=== PATIENT | female | born 1985 | race Caucasian/White ===

== ENCOUNTER 2018-12-17 19:39 | Emergency (ER) | payer OTHER, SELFPAY ==
[2018-12-17 19:39] VITALS: BP 125/78; PULSE 100; RESP 16; TEMP 37.2; O2SAT 100; BMI 29.2
--- NOTE | 2018-12-17 19:43 | RAD_ITS ---
STUDY: X-RAY - UNILATERAL RIBS ( RIGHT ) REASON FOR EXAM: Female, 33 years old. Fall TECHNIQUE: 4 view(s) of the ribs. COMPARISON: None. FINDINGS: Normal visualized ribs without a demonstrated fracture. The visualized lung is clear and expanded. RAD/Ribs Unil 2V No CXR IMPRESSION: Normal x-ray examination of the ribs. Electronically Signed: Blaine Booker DO at 22:09 EDT Tel [phone], Service support ,
--- NOTE | 2018-12-17 19:43 | RAD_ITS ---
STUDY: X-RAY - RIGHT SHOULDER REASON FOR EXAM: Female, 33 years old. Fall, pain. TECHNIQUE: 4 view(s) of the shoulder. COMPARISON: None. FINDINGS: Normal glenohumeral articulation. Normal acromioclavicular joint. Normal acromion. Normal humeral head and visualized proximal humerus. The soft tissue structures are unremarkable. Normal visualized pulmonary apex. RAD/Shoulder min 2 Views IMPRESSION: Normal x-ray examination of the shoulder. Electronically Signed: Ronit Alarcon MD at 22:03 EDT Tel , Service support ,
--- NOTE | 2018-12-17 22:34 | ED.VISSUMM ---
- ER Visit Summary Date of Service: 12/17/18 Chief Complaint: Fell on steps injuring right shoulder and right ribs History of Present Illness: The patient is a 33 F 3 of prior heroin addiction that has been recovering and sober for 3-5 years. Currently on Suboxone. Tonight she tripped on the steps at her home injuring her right shoulder and right ribs. States she did not hit her head. No other injuries. This occurred maximally 3 hours ago. Physical Examination: Vital signs stable afebrile. HEENT exam atraumatic. TMs are reactive light. Neck nontender normal range of motion. Trachea midline. Lungs clear to auscultation bilaterally. Heart regular rhythm no murmur. With right chest wall laterally is mildly tender there is no ecchymosis. No bruising or subcu air. No crepitance. No bony deformities. Left rib cage is nontender. Abdomen soft nontender normal bowel sounds no peritoneal signs. No bruising. Pelvic girdle intact. Left upper extremity both lower extremities are nontender normal range of motion. Back is nontender. C-spine, T-spine, L-spine are all nontender. No bruising on her back. Right upper extremity has pain to palpation in the right shoulder. There is no deformity. She has decreased range of motion due to pain. 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 Normal radial pulse. Skin is intact. Neurologically she is awake and alert with no focal motor deficits. She does not move her right shoulder due to pain. Test Results: Right shoulder x-ray shows no acute abnormality. Chest x-ray and rib series shows no acute abnormality. No fractures or pneumothorax. All x-rays were read both by myself and the radiologist. Emergency Department Course and Treatment: Discussed all test results with the patient and went over her films with her. Due to her recovery from heroin injection she does not want any narcotics and will be placed on Motrin for pain and given a dose in the ER. Treatment Plan: Ice to the right shoulder and rib cage. Motrin ibuprofen for pain. Follow-up if not improving. Disposition: Discharge Impression: Fall Right shoulder contusion Right rib cage contusion This note was generated with [employer] dictation software. It may contain incorrect words, spelling, and punctuation that were not noted in review of the chart prior to signing ED Disposition - Plan for ED Patient: Referrals: Radu Bella MD [Primary Care Provider] -
--- NOTE | 2018-12-17 22:38 | ED.DCSUM_ITS ---
- ER Visit Summary Date of Service: 12/17/18 Chief Complaint: Fell on steps injuring right shoulder and right ribs History of Present Illness: The patient is a 33 F 3 of prior heroin addiction that has been recovering and sober for 3-5 years. Currently on Suboxone. Tonight she tripped on the steps at her home injuring her right shoulder and right ribs. States she did not hit her head. No other injuries. This occurred maximally 3 hours ago. Physical Examination: Vital signs stable afebrile. HEENT exam atraumatic. TMs are reactive light. Neck nontender normal range of motion. Trachea midline. Lungs clear to auscultation bilaterally. Heart regular rhythm no murmur. With right chest wall laterally is mildly tender there is no ecchymosis. No bruising or subcu air. No crepitance. No bony deformities. Left rib cage is nontender. Abdomen soft nontender normal bowel sounds no peritoneal signs. No bruising. Pelvic girdle intact. Left upper extremity both lower extremities are nontender normal range of motion. Back is nontender. C-spine, T-spine, L-spine are all nontender. No bruising on her back. Right upper extremity has pain to palpation in the right shoulder. There is no deformity. She has decreased range of motion due to pain. 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 Normal radial pulse. Skin is intact. Neurologically she is awake and alert with no focal motor deficits. She does not move her right shoulder due to pain. Test Results: Right shoulder x-ray shows no acute abnormality. Chest x-ray and rib series shows no acute abnormality. No fractures or pneumothorax. All x-rays were read both by myself and the radiologist. Emergency Department Course and Treatment: Discussed all test results with the patient and went over her films with her. Due to her recovery from heroin injection she does not want any narcotics and will be placed on Motrin for pain and given a dose in the ER. Treatment Plan: Ice to the right shoulder and rib cage. Motrin ibuprofen for pain. Follow-up if not improving. Disposition: Discharge Impression: Fall Right shoulder contusion Right rib cage contusion This note was generated with [employer] dictation software. It may contain incorrect words, spelling, and punctuation that were not noted in review of the chart prior to signing ED Disposition - Plan for ED Patient: Referrals: Radu Bella MD [Primary Care Provider] -
--- NOTE | 2018-12-17 22:38 | ED.DEP ---
ED Disposition - Plan for ED Patient: Disposition: Home or Assisted Living Instructions: ED Contusion Upper Ext, ED Contusion Rib Referrals: Radu Bella MD [Primary Care Provider] - 10-14 Days if not better Additional Instructions: Ice to the shoulder and ribs. Tylenol and Motrin for pain. Follow-up with not improving. Sling for comfort but please take it off at least 5-10 times a day to do range of motion with the shoulder or it will get stiff. You can take the sling off to shower and to bathe.
[2018-12-17] MEDS: Ibuprofen 600 MG Tablet PO (22:55)
[2018-12-17 22:57] VITALS: BP 125/78; PULSE 99; RESP 15; O2SAT 99
== END 2018-12-17 22:58 | disposition home or self-care (01) ==
PROVIDERS: Emergency Provider Emergency Medicine; Family Provider Family Medicine; PCP Family Medicine
DX: S40.011A Contusion of right shoulder, initial encounter (principal); S20.211A Contusion of right front wall of thorax, initial encounter; W10.9XXA Fall (on) (from) unspecified stairs and steps, initial encounter; Y93.9 Activity, unspecified; Y92.9 Unspecified place or not applicable; Y99.9 Unspecified external cause status; F11.21 Opioid dependence, in remission; Z72.0 Tobacco use
CPT/HCPCS: 71100; 73030; 99283

== ENCOUNTER 2019-02-19 21:13 | Emergency (ER) | payer OTHER, SELFPAY ==
[2019-02-19 21:14] VITALS: BP 112/74; PULSE 84; RESP 15; TEMP 36.8; BMI 27.8
[2019-02-19] MEDS: 0.9% Normal Saline 1,000 ML 1000 ML IV (21:34)
[2019-02-19] MEDS: Ketorolac 30 MG/ML Syringe IV (21:34)
[2019-02-19] MEDS: proMETHazine 25 MG/ML Syringe 12.5 MG IV (21:34)
[2019-02-19 21:43] LABS: Absolute Lymphocyte Count 2.24 X10^3/ul (0.83-4.51); Absolute Neutrophil Count 6.6 X10^3/uL (2.0-7.7); Basophil# 0.03 X10^3/uL; Basophil% 0.3 % (0-1); Eosinophil# 0.17 X10^3/uL; Eosinophils% 1.8 % (0-5); Hematocrit 35.4 % (37-47); Hemoglobin 11.7 g/dl (12.0-15.0); Lymphocyte # 2.24 X10^3/ul (4.0); Lymphocyte % 23.7 % (19-41); Mean Corp Hgb Conc 33.1 g/gl (32-36); Mean Corpuscular Hgb 27.6 pg (27.0-32.0); Mean Corpuscular Volume 83.5 fL (81-99); Mean Platelet Vol. 10.9 fl (6.2-12.0); Monocyte# 0.44 X10^3/uL; Monocyte% 4.7 % (0-10); Neutrophil # 6.57 X10^3/uL (2.7-7.7); Neutrophil % 69.4 % (47-70); Platelet Count 204 K/mm3 (150-450); RBC Distribution Width CV 14.1 % (11.6-14.6); RBC Distribution Width SD 42.8 fl (35.1-43.9); Red Blood Count 4.24 M/mm3 (4.2-5.4); White Blood Count 9.5 K/mm3 (4.4-11.0)
[2019-02-19 21:44] LABS: POSITIVE COUNT NO; POSITIVE DIFFERENTIAL NO; POSITIVE MORPHOLOGY NO
--- NOTE | 2019-02-19 21:44 | ED.DCSUM_ITS ---
"- ER Visit Summary Date of Service: 02/19/19 Chief Complaint: Abdominal pain History of Present Illness: The patient is a 33 F presents to the emergency department with midepigastric abdominal pain. The patient states her symptoms began today. She describes a sharp stabbing pain that started about 3 hours prior to arrival. States it comes in waves. She states that she had similar pain before when she had her gallbladder out. The patient is on Suboxone therapy. She denies any fevers or chills. She is been mildly nauseated without any vomiting. She is moving her bowels without issue. Physical Examination: Vital signs reviewed General: Well-nourished, well-developed Head: Normocephalic, atraumatic Eyes: Pupils equal and reactive, extraocular muscles intact Neck, supple, no lymphadenopathy Heart: Regular rate and rhythm Respiratory: No distress, clear bilaterally Abdomen: Soft, tender in the midepigastric area without rebound or guarding, nondistended, no peritoneal signs Back: Nontender Extremities: Nontender, no edema, no cords Skin: Normal color no rash Neuro: Alert and oriented, no focal or lateralizing deficits Test Results: [] Emergency Department Course and Treatment: The patient does have some mild pain in the midepigastric area. She has already had her gallbladder out. IV was established. She was given fluids and antiemetics. She was also given Toradol. As the patient was on Suboxone, I did not give her any narcotics. Screening labs were obtained and were unremarkable. On reevaluation, her nausea is improved but she was still having mild pain. Patient was given a GI cocktail. She had almost complete resolution of her symptoms. This time, I do not suspect a dangerous process. I am going to keep the patient on Pepcid, Carafate, and Bentyl. She was counseled on concerning symptoms and reasons to return. She will be discharged home. Treatment Plan: [] Disposition: Discharge Impression: 1. Midepigastric abdominal pain This note was generated with [email or web address] dictation software. It may contain incorrect words, spelling, and punctuation that were not noted in review of the chart prior to signing ED Disposition - Plan for ED Patient: Instructions: ED PUD Vs Gastritis Prescriptions: RX: Dicyclomine HCl [Bentyl] 20 mg PO TIDAC #20 cap Famotidine [Pepcid] 20 mg PO BID #28 tab Sucralfate [Carafate] 1 gm PO 4X/DAY #60 tab Referrals: Radu Bella MD [Primary Care Provider] -"
[2019-02-19 21:54] LABS: ALB/GLOB Ratio 0.9 RATIO (0.9-2.4); AST(SGOT) 22 U/L (15-37); Alanine Aminotransfer ALT/SGPT 23 U/L (13-56); Albumin, Serum 3.4 g/dL (3.2-5.0); Alkaline Phosphatase 57 U/L (45-117); Anion Gap 5 (5-15); BUN 15 mg/dL (7-18); BUN/Creat Ratio 19.6 RATIO (10-20); Calcium,Total 8.7 mg/dL (8.5-10.1); Chloride 111 mmol/L (98-107); Creatinine, Serum 0.77 mg/dL (0.55-1.02); EST Glomerular Filtration Rate 92 mL/min (>60); Est Glom Filt Rate - Afr Amer 112 mL/min (>60); Estimated Creatinine Clearance 79.15 ml/min; Globulin 3.8 g/dL (2.2-4.2); Glucose 104 mg/dL (74-106); Lipase 54 U/L (73-393); Potassium 4.3 mmol/L (3.5-5.1); Protein, Total 7.2 g/dL (6.4-8.2); Sodium Level 141 mmol/L (136-145)
[2019-02-19] MEDS: Mag Hydrox/Al Hydrox/Simeth 30 ML UDC PO (22:07)
[2019-02-19 22:21] VITALS: RESP 18
== END 2019-02-19 22:24 | disposition home or self-care (01) ==
LOC: ED 21:36
PROVIDERS: Emergency Provider Emergency Medicine; Family Provider Family Medicine; PCP Family Medicine
DX: K29.70 Gastritis, unspecified, without bleeding (principal); R10.13 Epigastric pain; R11.0 Nausea
CPT/HCPCS: 80053; 83690; 85025; 96361; 96374; 96375; 99284; J7030; A4216

== ENCOUNTER → 2019-05-19 10:45 | Outpatient (CLI) | payer OTHER, SELFPAY ==
[2019-05-19 11:33] LABS: Amphetamine Urine VISTA NEGATIVE (<1000 ng/mL); Barbiturate Urine VISTA NEGATIVE (< 200 ng/mL); Benzodiazepine Urine VISTA NEGATIVE (< 200 ng/mL); Cocaine Urine VISTA NEGATIVE (< 300 ng/mL); Ecstacy Urine VISTA NEGATIVE (< 500 ng/mL); Methadone Urine VISTA NEGATIVE (< 300 ng/mL); PCP Urine VISTA NEGATIVE (< 25 ng/mL); THC Urine VISTA NEGATIVE (< 50 ng/mL); Vista UDS pH Range 5
== END ==
PROVIDERS: Family Provider Family Medicine; PCP Family Medicine; Referring Provider Anesthesiology Pain Medicine; Visit Provider Anesthesiology Pain Medicine
DX: F11.20 Opioid dependence, uncomplicated (principal)
CPT/HCPCS: 80307

== ENCOUNTER 2019-07-13 09:15 | Emergency (ER) | payer OTHER, SELFPAY ==
[2019-07-13 09:16] VITALS: BP 130/67; PULSE 86; RESP 20; TEMP 36.6; O2SAT 98; BMI 27.3
[2019-07-13 09:53] LABS: Absolute Neutrophil Count 7.3 X10^3/uL (2.0-7.7); Basophil# 0.05 X10^3/uL; Basophil% 0.4 % (0-1); Eosinophil# 0.18 X10^3/uL; Eosinophils% 1.5 % (0-5); Hematocrit 42.1 % (37-47); Hemoglobin 13.7 g/dL (12.0-15.0); Lymphocyte % 32.5 % (19-41); Mean Corp Hgb Conc 32.5 g/dL (32-36); Mean Corpuscular Hgb 28.1 pg (27.0-32.0); Mean Corpuscular Volume 86.4 fL (81-99); Monocyte# 0.72 X10^3/uL; Monocyte% 5.9 % (0-10); NRBC Flagged by Analyzer 0 % (0-5); Neutrophil # 7.31 X10^3/uL (2.7-7.7); Neutrophil % 59.4 % (47-70); Platelet Count 200 K/mm3 (150-450); RBC Distribution Width CV 14.6 % (11.6-14.6); Red Blood Count 4.87 M/mm3 (4.2-5.4); White Blood Count 12.3 K/mm3 (4.4-11.0)
[2019-07-13 10:10] LABS: ALB/GLOB Ratio 0.9 RATIO (0.9-2.4); AST(SGOT) 25 U/L (15-37); Alanine Aminotransfer ALT/SGPT 24 U/L (13-56); Albumin, Serum 3.8 g/dL (3.2-5.0); Alkaline Phosphatase 51 U/L (45-117); Anion Gap 3 (5-15); BUN 14 mg/dL (7-18); BUN/Creat Ratio 19.3 RATIO (10-20); Chloride 110 mmol/L (98-107); Creatinine, Serum 0.72 mg/dL (0.55-1.02); EST Glomerular Filtration Rate 98 mL/min (>60); Est Glom Filt Rate - Afr Amer 119 mL/min (>60); Estimated Creatinine Clearance 83.86 ml/min; Globulin 4.1 g/dL (2.2-4.2); Glucose 102 mg/dL (74-106); Lipase 64 U/L (73-393); Potassium 4.3 mmol/L (3.5-5.1); Protein, Total 7.9 g/dL (6.4-8.2); Sodium Level 138 mmol/L (136-145)
--- NOTE | 2019-07-13 11:39 | ED.DCSUM_ITS ---
History of Present Illness Chief Complaint: Abd Pain Informant: Patient - Abdominal Pain/Flank Pain Onset: Today - several hrs Context: Sudden Onset - woke her up from sleep Quality: Aching Location: Epigastric - entire upper abd Current Severity: Severe Maximum Severity: Severe Worsened by: Nothing Relieved by: Nothing - Nausea/Vomiting/Emesis GI Symptom: Nausea, Vomiting - Diarrhea/Melena/Hematochezia GI Symptom: - - normal BM yest. Negative for: Diarrhea, Melena, Hematochezia Associated Symptoms: Negative for: Dysuria, Frequency, Hematuria, Urgency Narrative: Patient started having this pain several hours ago along with nausea, nonbilious emesis. Feels somewhat like her gallbladder pain did before they took her gallbladder out. She has noticed no jaundice, fevers, confusion. She has no pruritus or rash. Had a normal bowel movement yesterday no melena or blood. She has a history of narcotic addiction but has been sober for 5 or so years and is on Suboxone for that. - Past Medical History (1) E. coli pyelonephritis Status: Resolved (2) Heroin abuse Status: Resolved (3) Tobacco use Status: Chronic Past Medical History - Allergies and Home Meds Allergies/Adverse Reactions: Allergies amoxicillin trihydrate [From Augmentin] Allergy (Verified 07/13/19 09:18) Unknown erythromycin base [Erythromycin Base] Allergy (Verified 07/13/19 09:18) Unknown morphine Allergy (Verified 07/13/19 09:18) Unknown Penicillins Allergy (Verified 07/13/19 09:18) Unknown potassium clavulanate [From Augmentin] Allergy (Verified 07/13/19 09:18) Unknown Primary Care Physician: Radu Bella MD [Primary Care Provider] - Surgical History: cholecystectomy, - - Lithotripsy, renal stent placement, BLTL. Smoking Status: Current every day smoker Alcohol: None - Family History Maternal Family History: Reports: Hypertension Paternal Family History: Reports: Hypertension Review of Systems General: Reports: Malaise. Denies: Chills, Fever, Sweats Eyes: Denies: Visual changes - bilaterally, Diplopia ENT: Denies: Rhinorrhea, Sore throat Cardiovascular: Denies: Chest pain, Palpitations Respiratory: Denies: Dyspnea, Cough, Dyspnea on exertion Gastrointestinal: Reports: Abdominal pain, Nausea, Vomiting. Denies: Diarrhea, Melena, Hematochezia Genitourinary: Denies: Dysuria, Hematuria, Frequency Musculoskeletal: Denies: Back pain, Extremity Pain Skin: Denies: Rash, Wounds Neurological: Denies: Headache, Weakness, Numbness Physical Exam Vital Signs/Narrative: Vital Signs Temp Pulse Resp BP Pulse Ox 07/13/19 09:16 98 F 86 20 H 130/67 H 98 Inital Vital Signs reviewed: Yes General: Well nourished, Well developed, No Acute Distress Head: Normocephalic, Atraumatic Eyes: Perrl, EOMI ENT: Moist mucous membranes, No rhinorrhea Neck: Supple, Nontender Cardiovascular: Regular rate, Regular rhythm, No murmurs Respiratory: No distress, CTA bilaterally, Chest nontender Abdomen: Soft, Nondistended, Normal bowel sounds, Tender - throughout upper abd, worst epigatric. Negative for: Guarding, Rebound tenderness, Pulsatile mass Back: Nontender, Normal Inspection. Negative for: CVA tenderness Extremities: Nontender, No edema Skin: Normal color, No rash Neurological: Alert, Oriented x3, Cranial nerves II-XII grossly intact, Normal Strength, Normal Sensation Psychological: Normal affect, Normal Mood Diagnostic/Tx/Re-eval Laboratory Results 07/13/19 07/13/19 07/13/19 09:25 09:25 09:30 WBC 12.3 H RBC 4.87 Hgb 13.7 Hct 42.1 MCV 86.4 MCH 28.1 MCHC 32.5 RDW Std Deviation 46.0 H RDW Coeff of [place] 14.6 Plt Count 200 MPV 11.0 Immature Gran % (Auto) 0.300 Neut % (Auto) 59.4 Lymph % (Auto) 32.5 [place] % (Auto) 5.9 Eos % (Auto) 1.5 Baso % (Auto) 0.4 Absolute Neuts (auto) 7.3 Absolute Lymphs (auto) 4.00 Nucleated RBC % 0 Sodium 138 Potassium 4.3 Chloride 110 H Carbon Dioxide 25.0 Anion Gap 3 L BUN 14 Creatinine 0.72 Estim Creat Clear Calc 83.86 Est GFR (MDRD) Af Amer 119 Est GFR (MDRD) Non-Af 98 BUN/Creatinine Ratio 19.3 Glucose 102 Calcium 9.0 Total Bilirubin 0.60 AST 25 ALT 24 Alkaline Phosphatase 51 Total Protein 7.9 Albumin 3.8 Globulin 4.1 Albumin/Globulin Ratio 0.9 Lipase 64 L Urine Color Urine Clarity Urine pH Ur Specific [place] Urine Protein Urine Glucose (UA) Urine Ketones Urine Occult Blood Urine Nitrite Urine Bilirubin Urine Urobilinogen Ur Leukocyte Esterase Urine RBC Urine WBC Ur Squamous Epith Cells Urine Bacteria Urine Mucus Urine Test Negative 07/13/19 09:30 WBC RBC Hgb Hct MCV MCH MCHC RDW Std Deviation RDW Coeff of [place] Plt Count MPV Immature Gran % (Auto) Neut % (Auto) Lymph % (Auto) [place] % (Auto) Eos % (Auto) Baso % (Auto) Absolute Neuts (auto) Absolute Lymphs (auto) Nucleated RBC % Sodium Potassium Chloride Carbon Dioxide Anion Gap BUN Creatinine Estim Creat Clear Calc Est GFR (MDRD) Af Amer Est GFR (MDRD) Non-Af BUN/Creatinine Ratio Glucose Calcium Total Bilirubin AST ALT Alkaline Phosphatase Total Protein Albumin Globulin Albumin/Globulin Ratio Lipase Urine Color Yellow Urine Clarity Sl. Cloudy Urine pH 6.0 Ur Specific [place] 1.020 Urine Protein Negative Urine Glucose (UA) Normal Urine Ketones Negative Urine Occult Blood Negative Urine Nitrite Negative Urine Bilirubin Negative Urine Urobilinogen Normal Ur Leukocyte Esterase 25 H Urine RBC 0 SEEN Urine WBC 0-5 SEEN Ur Squamous Epith Cells 0-5 SEEN Urine Bacteria 0 SEEN Urine Mucus 0 SEEN Urine Test - Medical Decision Making Labs are unremarkable, ordered medicine for her discomfort and nausea along with fluids. IV fluids were started, but due to ER volume and nursing, medicines had not been given 3 hours after they were ordered. Then her IV infiltrated. The plan was to reevaluate her after GI cocktail and Zofran, and if still in pain, perform a CT given the unknown etiology of her significant discomfort. However now she wants to leave. I discussed the fact that we will not be able to rule out bowel obstruction, certain other problems, and she understands these risks but wants to leave now. Therefore she is signed out AGAINST MEDICAL ADVICE. ED Disposition - Plan for ED Patient: Disposition: Against Medical Advice Diagnosis: Upper abdominal pain of unknown etiology Instructions: ABDOMINAL PAIN, Unknown Cause, (Female) Prescriptions: Dicyclomine HCl [Bentyl] 20 mg PO Q4H PRN #20 cap PRN Reason: abdominal pain Prescription Printed Ondansetron [Zofran] 8 mg PO Q8H PRN PRN #12 tab PRN Reason: Nausea Prescription Printed Referrals: Radu Bella MD [Primary Care Provider] - As soon as possible (Or ER if you change your mind)
[2019-07-13 11:47] LABS: Bacteria 0 SEEN /hpf (None Seen); Color, Urine Yellow (Yellow); Glucose, Dipstick Normal (Normal); Ketone-Dipstick Negative (Negative); Leukocyte Esterase-Dipstick 25 /ul (Negative); Mucous, Urine 0 SEEN /hpf (<or=2+); Nitrite-Dipstick Negative (Negative); Occult Blood-Urine Negative /ul (Negative); Protein-Dipstick Negative (Negative); Red Blood Cells-Urine 0 SEEN /hpf (0-5); Urine Bilirubin Dipstick Negative (Negative); Urine Clarity Sl. Cloudy (Clear); Urine Urobilinogen Normal (Normal)
[2019-07-13 11:50] LABS: Internal QC Validated? YES +Cl - CLEAR BKGD; Pregnancy, Urine Negative Negative
[2019-07-13 12:04] LABS: Squamous Epithelial Cells - UA 0-5 SEEN /hpf (5-10); White Blood Cells 0-5 SEEN /hpf (0-5)
[2019-07-13] MEDS: 0.9% Normal Saline 1,000 ML 1000 ML IV (12:51)
[2019-07-13] MEDS: Mag Hydrox/Al Hydrox/Simeth 30 ML UDC PO (12:52)
[2019-07-13] MEDS: Ondansetron 4 MG/2 ML Vial IV (12:52)
[2019-07-13 12:54] VITALS: BP 97/48
--- NOTE | 2019-07-13 13:18 | ED.RN ---
RN CALLED TO ROOM, STATES IV SITE IS SWELLING. IV PULLED AND DISCONTINUED. WARM COMPRESS PUT ON SITE. PT STATES SHE WANTS TO LEAVE AMA. DR GONZALEZ MADE AWARE. APOLOGIZED TO PT FOR DELAY IN CARE.
== END 2019-07-13 13:19 | disposition left against medical advice (07) ==
PROVIDERS: Emergency Provider Emergency Medicine; Family Provider Family Medicine; PCP Family Medicine
DX: R10.10 Upper abdominal pain, unspecified (principal); R11.2 Nausea with vomiting, unspecified; F17.200 Nicotine dependence, unspecified, uncomplicated; Z87.440 Personal history of urinary (tract) infections
CPT/HCPCS: 80053; 81001; 81025; 83690; 85025; 96374; 99284; J7030; A4216; J2405

== ENCOUNTER 2020-03-05 06:49 | Emergency (ER) | payer OTHER, SELFPAY ==
[2020-03-05 06:50] VITALS: BP 119/76; PULSE 79; RESP 18; TEMP 36.8; O2SAT 98; BMI 31.1
--- NOTE | 2020-03-05 06:56 | ED.VIS.GEN ---
History of Present Illness Chief Complaint: Dental Informant: Patient Onset: Days Context: Gradual Onset Timing: Continuous Current Severity: Moderate Maximum Severity: Moderate Narrative: Patient is a otherwise healthy 34-year-old female who presents to the emergency department with left upper dental pain. She states she broke her tooth last week. She states is been mildly painful, and over the past 2 days it is gotten more swollen. She has taken ibuprofen with some improvement. She denies trouble speaking or swallowing. She denies any fevers or chills. She states she is otherwise been in her normal state of health. Prior similar symptoms: Yes Recent Illness/Hospitalization: No Past Medical History - Allergies and Home Meds Allergies/Adverse Reactions: Allergies amoxicillin trihydrate [From Augmentin] Allergy (Verified 03/05/20 06:53) Unknown erythromycin base [Erythromycin Base] Allergy (Verified 03/05/20 06:53) Unknown morphine Allergy (Verified 03/05/20 06:53) Unknown Penicillins Allergy (Verified 03/05/20 06:53) Unknown potassium clavulanate [From Augmentin] Allergy (Verified 03/05/20 06:53) Unknown Primary Care Physician: Radu Bella MD [Primary Care Provider] - Prior records reviewed: Yes Past Medical History: - - No significant medical history Surgical History: cholecystectomy, - - Lithotripsy, renal stent placement, BLTL. Smoking Status: Current every day smoker - Family History Maternal Family History: Reports: Hypertension Paternal Family History: Reports: Hypertension Review of Systems General: Denies: Chills, Fever, Sweats Eyes: Denies: Visual changes - bilaterally, Diplopia ENT: Denies: Rhinorrhea, Sore throat Cardiovascular: Denies: Chest pain, Palpitations Respiratory: Denies: Dyspnea, Cough, Dyspnea on exertion Gastrointestinal: Denies: Abdominal pain, Nausea, Vomiting, Diarrhea, Melena, Hematochezia Genitourinary: Denies: Dysuria, Hematuria, Frequency Musculoskeletal: Denies: Back pain, Extremity Pain Skin: Denies: Rash, Wounds Neurological: Denies: Headache, Weakness, Numbness Physical Exam Vital Signs/Narrative: Vital Signs Temp Pulse Resp BP Pulse Ox 03/05/20 06:50 98.2 F 79 18 119/76 98 Inital Vital Signs reviewed: Yes General: Well nourished, Well developed, No Acute Distress Head: Normocephalic, Atraumatic Eyes: Perrl, EOMI ENT: Moist mucous membranes, No rhinorrhea, - - Multiple dental caries. Focal tenderness of tooth 14. Multiple cavities. Submental space soft. No trismus. No stridor. Neck: Supple, Nontender Cardiovascular: Regular rate, Regular rhythm, No murmurs Respiratory: No distress, CTA bilaterally, Chest nontender Abdomen: Soft, Nontender, Nondistended, Normal bowel sounds Back: Nontender, Normal Inspection Extremities: Nontender, No edema Skin: Normal color, No rash Neurological: Alert, Oriented x3, Cranial nerves II-XII grossly intact, Normal Strength, Normal Sensation Psychological: Normal affect, Normal Mood Diagnostic/Tx/Re-eval - Medical Decision Making The patient has no evidence of Alirio angina. She has no trismus or stridor. Her neck is supple. She does have evidence of early periapical abscess. She has multiple drug allergies and will be treated with clindamycin. She is given her first dose here along with outpatient dental follow-up. Patient be discharged home. Impression 1. Dental abscess ED Disposition - Plan for ED Patient: Instructions: ED ABSCESS DENTAL Prescriptions: Clindamycin [Cleocin] 300 mg PO 4X/DAY #80 cap Prescription Printed Ibuprofen [Motrin] 800 mg PO TID PRN PRN #20 tab PRN Reason: Pain Or Fever Prescription Printed Referrals: Radu Bella MD [Primary Care Provider] -
[2020-03-05] MEDS: Clindamycin HCl 150 MG Capsule 450 MG PO (06:59)
[2020-03-05 07:00] VITALS: BP 131/73; PULSE 74; RESP 18; O2SAT 99
== END 2020-03-05 07:12 | disposition home or self-care (01) ==
LOC: ED 07:11
PROVIDERS: Emergency Provider Emergency Medicine; PCP Family Medicine
DX: K04.7 Periapical abscess without sinus (principal); F17.200 Nicotine dependence, unspecified, uncomplicated
CPT/HCPCS: 99283

== ENCOUNTER 2020-03-15 05:44 | Emergency (ER) | payer OTHER, SELFPAY ==
[2020-03-15 05:44] VITALS: BP 98/58; PULSE 85; RESP 14; TEMP 36.8; O2SAT 98; BMI 30.4
--- NOTE | 2020-03-15 05:58 | CT_ITS ---
STUDY: CT BRAIN WITHOUT CONTRAST REASON FOR EXAM: Female, 34 years old. HIT HEAD ON CABINET, REPEATED N/V, [place] RADIATION DOSAGE (If Supplied By Facility): CTDIvol = ( 44.99 ) mGy, DLP = ( 779.24 ) mGycm TECHNIQUE: Transaxial CT imaging of the brain was performed without administration of intravenous contrast material. Individualized dose optimization techniques were used for this CT. COMPARISON: No relevant priors. FINDINGS: Normal soft tissue structures. Normal calvarium. Normal size ventricles and extra-axial spaces for the patient''s age. Normal white matter tracts of the cerebral hemispheres. Normal basal ganglia and thalami. Normal brainstem. Normal cerebellum. There is no intracranial hemorrhage. There are no findings of an acute ischemic infarction. Normal visualized paranasal sinuses. CT/Brain/Head without Contrast IMPRESSION: Negative unenhanced CT scan of the brain. Electronically Signed: Nacho Casarez, at 6:32 EDT Tel , Service support ,
--- NOTE | 2020-03-15 05:59 | ED.VIS.INJ ---
History of Present Illness Chief Complaint: Head Injury Informant: Patient, Family Onset: Hours - 7-8 Mechanism/Context: Blunt Injury Quality of Pain: Aching Location: forehead/top of head Current Severity: Moderate Maximum Severity: Moderate Associated Symptoms: Negative for: Parasthesias, Weakness, Loss of function, Inability to ambulate, Loss of consciousness, Amnesia Narrative: Patient states they are renovating in their kitchen, she was mopping and accidentally stood up right into a cabinet hitting the top of her forehead. She was dazed but did not lose consciousness. Since then she has been having vertigo and vomiting. Every time she moves, rolls over in bed, or sits up, the symptoms get worse and she vomits. Since she has been dealing with it all night, she presents for evaluation. She denies any ringing in her ears or worse vision than she usually has. No diplopia. No focal neurologic symptoms or trouble walking. She states her neck is a little sore, but she denies any other major pains. Just a headache. Tetanus Immunization: <5 years - Past Medical History (1) Nephrolithiasis Status: Chronic (2) Polysubstance abuse Status: Chronic Past Medical History - Allergies and Home Meds Allergies/Adverse Reactions: Allergies amoxicillin trihydrate [From Augmentin] Allergy (Verified 03/15/20 05:48) Unknown erythromycin base [Erythromycin Base] Allergy (Verified 03/15/20 05:48) Unknown morphine Allergy (Verified 03/15/20 05:48) Unknown Penicillins Allergy (Verified 03/15/20 05:48) Unknown potassium clavulanate [From Augmentin] Allergy (Verified 03/15/20 05:48) Unknown Primary Care Physician: Radu Bella MD [Primary Care Provider] - 1 Week if not improving Surgical History: cholecystectomy, - - Lithotripsy, renal stent placement, BLTL. Lives: Spouse/ Significant Other Smoking Status: Current every day smoker Drugs: Heroin - Currently sober, taking Suboxone - Family History Maternal Family History: Reports: Hypertension Paternal Family History: Reports: Hypertension Review of Systems General: Reports: Malaise. Denies: Chills, Fever, Sweats Eyes: Denies: Visual changes - bilaterally, Diplopia ENT: Reports: Left ear pain - Mildly generally sore. Denies: Rhinorrhea, Sore throat Cardiovascular: Denies: Chest pain, Palpitations Respiratory: Denies: Dyspnea, Cough, Dyspnea on exertion Gastrointestinal: Reports: Nausea, Vomiting. Denies: Abdominal pain, Diarrhea, Melena, Hematochezia Genitourinary: Denies: Dysuria, Hematuria, Frequency Musculoskeletal: Reports: Neck pain. Denies: Back pain, Extremity Pain Skin: Reports: Abrasions. Denies: Rash Neurological: Reports: Headache. Denies: Weakness, Numbness Physical Exam Vital Signs/Narrative: Vital Signs Temp Pulse Resp BP Pulse Ox 03/15/20 05:44 98.3 F 85 14 98/58 L 98 Inital Vital Signs reviewed: Yes General: Well nourished, Well developed, - - No acute distress Head: Normocephalic, Trauma - Linear abrasion without laceration, superficial, center of top mid forehead. Tender. No crepitance or depression. No other signs of head trauma. Eyes: Perrl, EOMI, - - No abnormal nystagmus. ENT: TM's clear, No hemotympanum or drainage, No trauma - Other than forehead abrasion above. No ear trauma.. Negative for: Otorrhea, Nasal trauma Neck: Nontender, Full ROM. Negative for: Spinal Tenderness Respiratory: No distress Skin: Normal color, No rash, Trauma - See HEENT. Neurological: Alert, Oriented x3, Cranial nerves II-XII grossly intact, Normal Strength, Normal Sensation, Normal Gait, - - Normal [id number] and [id number] bilaterally Psychological: Normal affect, Normal Mood Diagnostic/Tx/Re-eval Clinical Impression(s) from Imaging Studies Brain CT 03/15/20 05:58 IMPRESSION: Negative unenhanced CT scan of the brain. Electronically Signed: Lennyronit Hermelindo, at 6:32 EDT Tel , Service support , - Medical Decision Making CT head performed, no skull fracture or intracranial hemorrhage/injury. Given that, differential includes concussion as well as posttraumatic benign positional vertigo, causing vomiting. Treated here with IV fluids as well as Reglan and meclizine. She feels better with regards to the nausea and vertigo but still has a headache. Given Toradol after the CT, will give her prescriptions for using medications as needed at home, follow-up if symptoms persist 1 week or longer. She is comfortable with that plan. ED Disposition - Plan for ED Patient: Disposition: Home or Assisted Living Diagnosis: Closed head injury without loss of consciousness, Posttraumatic vertigo Instructions: ED BPV Vertigo, ED Head Injury Adult Prescriptions: Meclizine HCl 25 mg PO Q8H PRN #16 tab PRN Reason: Vertigo Transmission Status: Pending to [facility] Ondansetron [Zofran Odt] 8 mg PO Q8H PRN PRN #14 tab PRN Reason: Nausea Transmission Status: Pending to [facility] Referrals: Radu Bella MD [Primary Care Provider] - 1 Week if not improving
[2020-03-15] MEDS: Metoclopramide 10 MG/2 ML Vial 5 MG IV (06:03)
[2020-03-15] MEDS: Meclizine HCl 25 MG Tablet PO (06:03)
[2020-03-15] MEDS: Ketorolac 30 MG/ML Syringe IV (06:50)
== END 2020-03-15 07:17 | disposition home or self-care (01) ==
PROVIDERS: Emergency Provider Emergency Medicine; PCP Family Medicine
DX: S00.81XA Abrasion of other part of head, initial encounter (principal); W22.8XXA Striking against or struck by other objects, initial encounter; Y93.89 Activity, other specified; Y92.000 Kitchen of unspecified non-institutional (private) residence as the place of occurrence of the external cause; Y99.8 Other external cause status; R42 Dizziness and giddiness; F17.200 Nicotine dependence, unspecified, uncomplicated
CPT/HCPCS: 70450; 96361; 96374; 96375; 99284; J7040; A4216

== ENCOUNTER 2020-05-27 15:48 | Emergency (ER) | payer OTHER, SELFPAY ==
[2020-05-27 15:49] VITALS: BP 132/82; PULSE 84; RESP 20; TEMP 36.2; O2SAT 99; BMI 30.2
--- NOTE | 2020-05-27 16:04 | ED.DCSUM_ITS ---
History of Present Illness Informant: Patient, Significant Other - Abdominal Pain/Flank Pain Onset: Today Context: Gradual Onset Timing: Continuous Quality: Burning, Sharp, Stabbing Location: Epigastric Current Severity: Severe Maximum Severity: Severe Worsened by: Food Relieved by: Nothing, Remaining Still - Nausea/Vomiting/Emesis GI Symptom: Nausea. Negative for: Vomiting Onset: Today - Diarrhea/Melena/Hematochezia GI Symptom: Negative for: Diarrhea, Melena, Hematochezia Associated Symptoms: Negative for: Dysuria, Frequency, Hematuria, Urgency Narrative: 34-year-old female presents to the emergency department epigastric abdominal pain. Patient states that she started to have some mild pain yesterday after work which led to her not eating dinner. She is also been having a lot of dental pain secondary to poor dentition so she took some ibuprofen last evening before bed and then woke up at 3 AM with sharp burning and stabbing epigastric p ain that is been constant since that time. She has had nausea but no vomiting. Denies any diarrhea melena or hematochezia. Denies constipation. Denies urinary symptoms. Denies chest pain or shortness of breath. She is not lightheaded or dizzy. Denies alcohol use. She has had a cholecystectomy. She has a history of kidney stones but states this does not feel similar. Prior similar symptoms: No Recent Illness/Hospitalization: No <Butch Oliveros - Last Filed: 05/27/20 17:20> <Jatin Castrejon - Last Filed: 05/27/20 17:51> Chief Complaint: Abd Pain Past Medical History Prior records reviewed: Yes Past Medical History: - - GERD, history of polysubstance abuse Surgical History: cholecystectomy, - - Lithotripsy, renal stent placement, BLTL. Smoking Status: Current every day smoker Alcohol: Occasional Drugs: None - Family History Maternal Family History: Reports: Hypertension Paternal Family History: Reports: Hypertension <Butch Oliveros - Last Filed: 05/27/20 17:20> <Jatin Castrejon - Last Filed: 05/27/20 17:51> - Allergies and Home Meds Allergies/Adverse Reactions: Allergies amoxicillin trihydrate [From Augmentin] Allergy (Verified 05/27/20 15:52) Unknown erythromycin base [Erythromycin Base] Allergy (Verified 05/27/20 15:52) Unknown morphine Allergy (Verified 05/27/20 15:52) Unknown Penicillins Allergy (Verified 05/27/20 15:52) Unknown potassium clavulanate [From Augmentin] Allergy (Verified 05/27/20 15:52) Unknown Primary Care Physician: Radu Bella MD [Primary Care Provider] - Review of Systems All systems negative except as indicated General: Denies: Chills, Fever, Sweats Eyes: Denies: Visual changes - bilaterally, Diplopia ENT: Denies: Rhinorrhea, Sore throat Cardiovascular: Denies: Chest pain, Palpitations Respiratory: Denies: Dyspnea, Cough, Dyspnea on exertion Gastrointestinal: Reports: Abdominal pain, Nausea. Denies: Vomiting, Diarrhea, Constipation, Melena, Hematochezia Genitourinary: Denies: Dysuria, Hematuria, Frequency Musculoskeletal: Denies: Back pain, Extremity Pain Skin: Denies: Rash, Wounds Neurological: Denies: Headache, Weakness, Numbness <Butch Oliveros - Last Filed: 05/27/20 17:20> Physical Exam Vital Signs/Narrative: Vital Signs Temp Pulse Resp BP Pulse Ox 05/27/20 15:49 97.1 F L 84 20 H 132/82 H 99 Inital Vital Signs reviewed: Yes General: Well nourished, Well developed, No Acute Distress Head: Normocephalic, Atraumatic Eyes: Perrl, EOMI ENT: Moist mucous membranes, No rhinorrhea Neck: Supple, Nontender Cardiovascular: Regular rate, Regular rhythm, No murmurs Respiratory: No distress, CTA bilaterally, Chest nontender Abdomen: Soft, Nondistended, Normal bowel sounds, Tender - Patient has epigastric tenderness on palpation. No guarding or rebound. No peritoneal signs.. Negative for: Guarding, Rebound tenderness Back: Nontender, Normal Inspection Extremities: Nontender, No edema Skin: Normal color, No rash Neurological: Alert, Oriented x3, Cranial nerves II-XII grossly intact, Normal Strength, Normal Sensation Psychological: Normal affect, Normal Mood <Butch Oliveros - Last Filed: 05/27/20 17:20> Vital Signs/Narrative: Vital Signs Temp Pulse Resp BP Pulse Ox 05/27/20 17:36 70 15 113/66 05/27/20 15:49 97.1 F L 84 20 H 132/82 H 99 <Jatin Castrejon - Last Filed: 05/27/20 17:51> Diagnostic/Tx/Re-eval Laboratory Results 05/27/20 05/27/20 05/27/20 16:10 16:10 16:20 WBC RBC Hgb Hct MCV MCH MCHC RDW Std Deviation RDW Coeff of [place] Plt Count MPV Immature Gran % (Auto) Neut % (Auto) Lymph % (Auto) [place] % (Auto) Eos % (Auto) Baso % (Auto) Absolute Neuts (auto) Absolute Lymphs (auto) Nucleated RBC % Sodium Cancelled Potassium Cancelled Chloride Cancelled Carbon Dioxide Cancelled Anion Gap Cancelled BUN Cancelled Creatinine Cancelled Estim Creat Clear Calc Cancelled Est GFR (MDRD) Af Amer Cancelled Est GFR (MDRD) Non-Af Cancelled BUN/Creatinine Ratio Cancelled Glucose Cancelled Calcium Cancelled Total Bilirubin Cancelled AST Cancelled ALT Cancelled Alkaline Phosphatase Cancelled Total Protein Cancelled Albumin Cancelled Globulin Cancelled Albumin/Globulin Ratio Cancelled Lipase Cancelled Urine Color Yellow Urine Clarity Clear Urine pH 6.0 Ur Specific [place] 1.025 Urine Protein 15 H Urine Glucose (UA) Normal Urine Ketones 5 H Urine Occult Blood Negative Urine Nitrite Positive H Urine Bilirubin Negative Urine Urobilinogen Normal Ur Leukocyte Esterase 25 H Urine RBC 0 SEEN Urine WBC 0-5 SEEN Ur Squamous Epith Cells 5-10 SEEN Urine Bacteria 3+ Urine Mucus 0 SEEN Urine Test Negative 05/27/20 05/27/20 16:20 16:55 WBC 9.1 RBC 4.55 Hgb 13.0 Hct 40.2 MCV 88.4 MCH 28.6 MCHC 32.3 RDW Std Deviation 42.9 RDW Coeff of [place] 13.2 Plt Count 197 MPV 11.5 Immature Gran % (Auto) 0.200 Neut % (Auto) 71.5 H Lymph % (Auto) 21.9 [place] % (Auto) 5.1 Eos % (Auto) 0.8 Baso % (Auto) 0.5 Absolute Neuts (auto) 6.5 Absolute Lymphs (auto) 2.00 Nucleated RBC % 0 Sodium 140 Potassium 4.0 Chloride 112 H Carbon Dioxide 25.0 Anion Gap 3 L BUN 12 Creatinine 0.64 Estim Creat Clear Calc 98.88 Est GFR (MDRD) Af Amer 136 Est GFR (MDRD) Non-Af 112 BUN/Creatinine Ratio 18.7 Glucose 123 H Calcium 8.1 L Total Bilirubin 0.40 AST 17 ALT 18 Alkaline Phosphatase 41 L Total Protein 6.5 Albumin 3.2 Globulin 3.3 Albumin/Globulin Ratio 1.0 Lipase 30 L Urine Color Urine Clarity Urine pH Ur Specific [place] Urine Protein Urine Glucose (UA) Urine Ketones Urine Occult Blood Urine Nitrite Urine Bilirubin Urine Urobilinogen Ur Leukocyte Esterase Urine RBC Urine WBC Ur Squamous Epith Cells Urine Bacteria Urine Mucus Urine Test - Medical Decision Making Patient presented with epigastric abdominal pain and nausea. She was given fluids, IV Zofran and a GI cocktail. CBC, CMP and lipase were obtained and were unremarkable. Urinalysis did demonstrate nitrites but no white blood cells or bacteria. Patient on repeat exam states that she has not had any urinary symptoms. We will send her urine for culture but will not place her on antibiotics at this time. She states she feels significantly better on my repeat exam she was able to tolerate by mouth she was eating chips and drinking a Diet Coke. Abdomen is soft and nontender. She will be discharged home. She was advised to follow-up with her primary care physician next 2 to 3 days. <Butch Oliveros - Last Filed: 05/27/20 17:20> - Medical Decision Making Seen and evaluated independently and in conjunction with physician news production assistant. Agree with notes above unless documented otherwise. Patient moaning in pain with epigastric tenderness, otherwise abdominal exam benign. Labs/lipase unremarkable. She is much better after treatment for intraluminal intestinal pain. Prescribed Pepcid and will follow-up. <Jatin Castrejon - Last Filed: 05/27/20 17:51> ED Disposition <Butch Oliveros - Last Filed: 05/27/20 17:20> <Jatin Castrejon - Last Filed: 05/27/20 17:51> - Plan for ED Patient: Disposition: Home or Assisted Living Diagnosis: Epigastric pain, Tobacco use Instructions: ED Abdominal Pain Unkn Cause Fem Prescriptions: Famotidine [Pepcid] 20 mg PO QHS #30 tab Transmission Status: Received by [facility] #30 Ondansetron [Zofran Odt] 4 mg PO Q8H PRN PRN #10 tab PRN Reason: Nausea Transmission Status: Received by [facility] #30 Referrals: Radu Bella MD [Primary Care Provider] -
[2020-05-27 16:27] LABS: Mucous, Urine 0 SEEN /hpf (<or=2+); Red Blood Cells-Urine 0 SEEN /hpf (0-5)
[2020-05-27] MEDS: Mag Hydrox/Al Hydrox/Simeth 30 ML UDC PO (16:28)
[2020-05-27] MEDS: Ondansetron 4 MG/2 ML Vial IV (16:28)
[2020-05-27 16:29] LABS: Absolute Neutrophil Count 6.5 X10^3/uL (2.0-7.7); Basophil# 0.05 X10^3/uL; Basophil% 0.5 % (0-1); Eosinophil# 0.07 X10^3/uL; Eosinophils% 0.8 % (0-5); Hematocrit 40.2 % (37-47); Lymphocyte % 21.9 % (19-41); Mean Corp Hgb Conc 32.3 g/dL (32-36); Mean Corpuscular Hgb 28.6 pg (27.0-32.0); Mean Corpuscular Volume 88.4 fL (81-99); Mean Platelet Vol. 11.5 fl (6.2-12.0); Monocyte# 0.47 X10^3/uL; Monocyte% 5.1 % (0-10); NRBC Flagged by Analyzer 0 % (0-5); Neutrophil # 6.52 X10^3/uL (2.7-7.7); Neutrophil % 71.5 % (47-70); Platelet Count 197 K/mm3 (150-450); RBC Distribution Width CV 13.2 % (11.6-14.6); RBC Distribution Width SD 42.9 fl (35.1-43.9); Red Blood Count 4.55 M/mm3 (4.2-5.4); White Blood Count 9.1 K/mm3 (4.4-11.0)
[2020-05-27 16:30] LABS: Color, Urine Yellow (Yellow); Glucose, Dipstick Normal (Normal); Ketone-Dipstick 5 mg/dl (Negative); Leukocyte Esterase-Dipstick 25 /ul (Negative); Nitrite-Dipstick Positive (Negative); Occult Blood-Urine Negative /ul (Negative); Protein-Dipstick 15 mg/dl (Negative); Specific Gravity, Urine 1.025 (1.002-1.030); Urine Bilirubin Dipstick Negative (Negative); Urine Clarity Clear (Clear); Urine Urobilinogen Normal (Normal)
[2020-05-27] MEDS: 0.9% Normal Saline 1,000 ML 1000 ML IV (16:30)
[2020-05-27 16:32] LABS: Internal QC Validated? YES +Cl - CLEAR BKGD; Pregnancy, Urine Negative Negative
[2020-05-27 16:40] LABS: Bacteria 3+ /hpf (None Seen); Squamous Epithelial Cells - UA 5-10 SEEN /hpf (5-10); White Blood Cells 0-5 SEEN /hpf (0-5)
[2020-05-27 17:17] LABS: AST(SGOT) 17 U/L (15-37); Alanine Aminotransfer ALT/SGPT 18 U/L (13-56); Albumin, Serum 3.2 g/dL (3.2-5.0); Alkaline Phosphatase 41 U/L (45-117); Anion Gap 3 (5-15); BUN 12 mg/dL (7-18); BUN/Creat Ratio 18.7 RATIO (10-20); Calcium,Total 8.1 mg/dL (8.5-10.1); Chloride 112 mmol/L (98-107); Creatinine, Serum 0.64 mg/dL (0.55-1.02); EST Glomerular Filtration Rate 112 mL/min (>60); Est Glom Filt Rate - Afr Amer 136 mL/min (>60); Estimated Creatinine Clearance 98.88 ml/min; Globulin 3.3 g/dL (2.2-4.2); Glucose 123 mg/dL (74-106); Lipase 30 U/L (73-393); Protein, Total 6.5 g/dL (6.4-8.2); Sodium Level 140 mmol/L (136-145)
[2020-05-27 17:36] VITALS: BP 113/66; PULSE 70; RESP 15
== END 2020-05-27 17:37 | disposition home or self-care (01) ==
PROVIDERS: Emergency Provider Physician Assistant Medical; PCP Family Medicine
DX: R10.13 Epigastric pain (principal); K21.9 Gastro-esophageal reflux disease without esophagitis; F17.200 Nicotine dependence, unspecified, uncomplicated; Z90.49 Acquired absence of other specified parts of digestive tract; Z87.442 Personal history of urinary calculi
CPT/HCPCS: 80053; 81001; 81025; 83690; 85025; 96361; 96374; 99285; J7030; A4216; J2405

== ENCOUNTER → 2021-07-01 13:25 | Outpatient (CLI) | payer BC, SELFPAY ==
[2021-07-01 13:58] LABS: BUP Internal Control LINE = VALID (VALID)
[2021-07-01 13:59] LABS: Buprenorphine Drug Screen Positive (<10 ng/mL)
[2021-07-01 14:04] LABS: Amphetamine Urine VISTA NEGATIVE (<1000 ng/mL); Barbiturate Urine VISTA NEGATIVE (< 200 ng/mL); Benzodiazepine Urine VISTA NEGATIVE (< 200 ng/mL); Cocaine Urine VISTA NEGATIVE (< 300 ng/mL); Ecstacy Urine VISTA POSITIVE (< 500 ng/mL); Methadone Urine VISTA NEGATIVE (< 300 ng/mL); PCP Urine VISTA NEGATIVE (< 25 ng/mL); THC Urine VISTA NEGATIVE (< 50 ng/mL); Vista UDS pH Range 6
== END ==
PROVIDERS: PCP Family Medicine; Referring Provider Anesthesiology Pain Medicine; Visit Provider Anesthesiology Pain Medicine
DX: F11.20 Opioid dependence, uncomplicated (principal)
CPT/HCPCS: 80307

== ENCOUNTER 2021-12-26 12:43 | Emergency (ER) | payer BC, SELFPAY ==
[2021-12-26 12:44] VITALS: BP 151/78; PULSE 88; RESP 16; TEMP 36.2; O2SAT 99; BMI 31.1
--- NOTE | 2021-12-26 12:54 | CT_ITS ---
STUDY: CT CERVICAL SPINE WITHOUT CONTRAST REASON FOR EXAM: Female, 36 years old. Injury, fall RADIATION DOSAGE (If Supplied By Facility): CTDIvol = ( 23.36 ) mGy, DLP = ( 515.59 ) mGycm TECHNIQUE: High resolution transaxial imaging was performed without contrast material. Sagittal and coronal images were reconstructed. Individualized dose optimization techniques were used for this CT. COMPARISON: None FINDINGS: Normal craniovertebral junction. Normal anterior atlantoaxial articulation. Normal odontoid process. There is straightening of the normal cervical lordosis. Normal vertebral bodies and posterior osseous elements. C2-3: Normal endplates. Normal disc height and morphology. Normal central canal and intervertebral neuroforamina. C3-4: Normal endplates. Normal disc height and morphology. Normal central canal and intervertebral neuroforamina. C4-5: Normal endplates. Normal disc height and morphology. Normal central canal and intervertebral neuroforamina. C5-6: Normal endplates. Normal disc height and morphology. Normal central canal and intervertebral neuroforamina. C6-7: Normal endplates. Normal disc height and morphology. Normal central canal and intervertebral neuroforamina. C7-T1: Normal endplates. Normal disc height and morphology. Normal central canal and intervertebral neuroforamina. Normal visualized soft tissue structures. CT/Spine Cervical without Contras IMPRESSION: There is straightening of the normal cervical lordosis. Electronically Signed: Jose Herndon MD at 13:27 EDT ,
--- NOTE | 2021-12-26 12:54 | CT_ITS ---
STUDY: CT BRAIN WITHOUT CONTRAST REASON FOR EXAM: Female, 36 years old. Head injury RADIATION DOSAGE (If Supplied By Facility): CTDIvol = ( 44.99 ) mGy, DLP = ( 796.11 ) mGycm TECHNIQUE: Transaxial CT imaging of the brain was performed without administration of intravenous contrast material. Individualized dose optimization techniques were used for this CT. COMPARISON: Comparison is made with prior study dated 03/15/2020. FINDINGS: Normal soft tissue structures. Normal calvarium. Normal size ventricles and extra-axial spaces for the patient''s age. Normal white matter tracts of the cerebral hemispheres. Normal basal ganglia and thalami. Normal brainstem. Normal cerebellum. There is no intracranial hemorrhage. There are no findings of an acute ischemic infarction. Opacification of the left frontal sinus. CT/Brain/Head without Contrast IMPRESSION: Normal unenhanced CT scan of the brain. Opacification of the left frontal sinus. Electronically Signed: Jose Herndon MD at 13:26 EDT ,
--- NOTE | 2021-12-26 12:54 | EX.ED.GENINJ ---
HPI History of Present Illness Chief Complaint: Fall Detail of Chief Complaint: Fall with head and neck injury that occurred yesterday Informant: patient Narrative Narrative: Patient presents to the emergency department complaint of head and neck pain since she had a fall yesterday. Patient states that she was sitting on a stool when she fell backwards onto the kitchen floor. No loss of consciousness. Initially thought she was fine. She then developed nausea for about 15 minutes. She now complains of severe pain in her neck with certain movements. Moving her neck also causes her pain in the right side of her head. She denies numbness or tingling or weakness in extremities. Patient was seen in urgent care and referred to the emergency department. She has had no vomiting. She still complains of a headache today. PFSH PFSH Home Medications Suboxone 2 mg-0.5 mg Sl Film 6 mg PO DAILY 11/19/15 [History Last Taken Unknown] famotidine 20 mg PO QHS #30 tab 05/27/20 [Rx Last Taken Unknown] ondansetron 4 mg PO Q8H PRN PRN #10 tab 05/27/20 [Rx Last Taken Unknown] cyclobenzaprine 10 mg PO TID PRN #20 tablet 12/26/21 [Rx Last Taken Unknown] naproxen 500 mg PO BID #14 tab 12/26/21 [Rx Last Taken Unknown] Allergy/AdvReac Type Severity Reaction Status Date / Time amoxicillin trihydrate Allergy Unknown Verified 12/26/21 12:46 [From Augmentin] erythromycin base Allergy Unknown Verified 12/26/21 12:46 [Erythromycin Base] morphine Allergy Unknown Verified 12/26/21 12:46 Penicillins Allergy Unknown Verified 12/26/21 12:46 potassium clavulanate Allergy Unknown Verified 12/26/21 12:46 [From Augmentin] Social History Smoking Status: Current every day smoker tobacco type: cigarettes ROS ROS ED Constitutional Constitutional ED: Reports systems reviewed and no addt'l complaints, except as documented; Denies body ache(s), change in weight or chills Eyes Eyes: Denies acute decrease in peripheral vision, change in vision, double vision or loss of vision ENT ENT ED: Reports none; Denies ear pain, lip swelling, loss taste/smell, neck pain, otalgia or sore throat Cardiovascular Cardiovascular: Reports none; Denies abdominal pain, chest pain with activity, leg edema, lightheadedness, palpitations, rapid heart rate or syncope Respiratory/Chest Respiratory/Chest: Reports none; Denies change in mental status, dry cough, dyspnea, hemoptysis, shortness of breath at rest or shortness of breath with exertion Gastrointestinal Gastrointestinal: Reports none; Denies abdominal pain, change in stool character, diarrhea, hematemesis, hematochezia, melena, rectal bleeding or vomiting Genitourinary Genitourinary ED: Reports none; Denies abdominal discomfort, anuria, dysuria, genital pain or polyuria Musculoskeletal Musculoskeletal: Reports none and neck pain; Denies arthralgias, back pain, difficulty walking, extremity pain, muscle weakness or myalgias Integumentary Reports none; Denies abscess or rash Neurologic Neurologic: Reports none and headache(s); Denies abnormal gait, confusion, focal weakness, frequent falls, loss of vision, numbness, paresthesias, radicular pain, vertigo or weakness Psychiatric Psychiatric: Reports systems reviewed and no addt'l complaints, except as documented and none; Denies behavioral changes, confusion, difficulty concentrating, hallucinations, suicidal ideation, tactile hallucinations or visual hallucinations Endocrine Endocrinology: Denies none, cold intolerance, excessive sweating, fatigue or heat intolerance Hematologic/Lymphatic Hematologic/Lymphatic: Reports none; Denies anemia, easy bleeding or easy bruising Allergic/Immunologic Allergic/Immunologic ED: Denies as per HPI, none, lip swelling, mouth swelling, throat swelling, tongue swelling or hives EXAM Physical Exam Const Vital Signs: 12/26/21 12:44 12/26/21 12:58 Temperature 97.2 F L Temperature Source Temporal Pulse Rate 88 Respiratory Rate 16 Respiratory Effort Normal Respiratory Depth Normal Respiratory Pattern Normal Blood Pressure 151/78 H Blood Pressure Mean 102 Pulse Ox 99 Oxygen Delivery Method Room Air Room Air Positive well nourished and well developed General Appearance ED: well developed and NAD HEENT Reports TM's clear and moist mucous membranes normocephalic and atraumatic; Negative for trauma or tenderness Tympanic Membrane ED: Yes TM's clear Eyes PERRL and EOMs intact bilaterally General Eye ED: Negative for pale conjunctiva or scleral icterus Neck no lymphadenopathy, supple and no JVD Neck Narrative: Patient with diffuse tenderness over the C-spine as well as the cervical paraspinal musculature right greater than left. She has decreased range of motion secondary to pain. General: tenderness Chest Wall inspection of chest normal and palpation of chest normal Chest: Negative for tenderness Resp normal respiratory effort and clear to auscultation bilaterally Effort and Inspection: Negative for respiratory distress or pain with movement Auscultation: Negative for rhonchi, wheezes or diminished lung sounds Cardio regular rate, regular rhythm, S1 normal heart sound, S2 normal heart sound and no murmurs Peripheral Pulses: pulses 2+ throughout GI normal to inspection, nondistended, normoactive bowel sounds, soft to palpation, non-tender, non-distended and no masses Back/Spine no CVA tenderness and no thoracic nor lumbar tenderness Extremity normal to inspection General Extremety ED: Negative for edema General Extremity: Negative for edema Neuro oriented x3, CN's II-XII intact bilaterally, no sensory deficits noted and gait normal Sensorium / Orientation: awake, alert, oriented to person, oriented to place and oriented to time Motor Exam: strength 5/5 throughout and strength abnormal Psych mental status grossly normal Skin no rashes or lesions noted and no wounds MDM MDM MDM Narrative Medical decision making narrative: Patient had a CT scan of the brain without contrast that was unremarkable. Patient also had a CT scan of the C-spine that showed some straightening of the normal lordosis otherwise no fractures. At this point patient will be given a prescription for Naprosyn and Flexeril and advised to follow-up with primary care physician in 5 to 7 days. Patient to return if worsening pain, weakness in extremities, or condition should worsen anyway. Radiography Diagnostic Testing: Clinical Impression(s) from Imaging Studies Brain CT 12/26/21 12:54 IMPRESSION: Normal unenhanced CT scan of the brain. Opacification of the left frontal sinus. Electronically Signed: Jose Herndon MD at 13:26 EDT , Cervical Spine CT 12/26/21 12:54 IMPRESSION: There is straightening of the normal cervical lordosis. Electronically Signed: Jose Herndon MD at 13:27 EDT , Discharge Plan Triage Chief Complaint: Fall ED Provider: Christopher Woods Dx/Rx/DC Orders Clinical Impression: Closed head injury, Cervical muscle strain Instructions: ED Mechanical Fall, ED Head Injury (Adult), ED Neck Sprain or Strain Prescriptions: New cyclobenzaprine [cyclobenzaprine] 10 MG tablet 10 mg PO TID PRN (Reason: Muscle Spasm) Qty: 20 RF: 0 naproxen 500 MG tablet 500 mg PO BID Qty: 14 RF: 0 No Action Suboxone 2 mg-0.5 mg Sl Film 6 mg PO DAILY RF: 0 famotidine 20 MG tablet 20 mg PO QHS Qty: 30 RF: 0 ondansetron 4 MG tablet 4 mg PO Q8H PRN PRN (Reason: Nausea) Qty: 10 RF: 0 Primary Care Provider: Radu Bella Referrals: Radu Bella MD [Primary Care Provider] - 3-5 Days Disposition Disposition: Home, Self Care
== END 2021-12-26 13:54 | disposition home or self-care (01) ==
PROVIDERS: Emergency Provider Emergency Medicine; PCP Family Medicine; Visit Provider Emergency Medicine
DX: S09.90XA Unspecified injury of head, initial encounter (principal); S16.1XXA Strain of muscle, fascia and tendon at neck level, initial encounter; W07.XXXA Fall from chair, initial encounter; Y93.89 Activity, other specified; Y99.8 Other external cause status; F17.210 Nicotine dependence, cigarettes, uncomplicated
CPT/HCPCS: 70450; 72125; 99282

== ENCOUNTER 2022-09-27 16:29 | Emergency (ER) | payer BC, SELFPAY ==
[2022-09-27 16:30] VITALS: BP 133/83; PULSE 80; RESP 15; TEMP 35.9; O2SAT 100; BMI 31.1
--- NOTE | 2022-09-27 17:07 | ED.VIS.DENTA ---
HPI History of Present Illness Chief Complaint: Dental Narrative Narrative: 37-year-old female past medical history of being in recovery for years, taking Suboxone, presents with TMJ and right mandibular pain that she has had for the last few weeks. She states it all started 3 to 4 weeks ago after she saw her dentist and had a wisdom tooth removed. She ended up smoking a few days afterwards and developed dry socket. This was treated with clindamycin a week and a half ago and she states that her dentist put a white substance in the dry socket. She finished her antibiotics 2 days ago, in the form of clindamycin 150 mg 3 times a day. She states that she is continuing to have right lower jaw and TMJ pain on the right. She denies any fevers or chills. No nausea or vomiting, no other symptoms. She is taking Tylenol and ibuprofen with mild relief temporarily of the pain in her right jaw. [facility] Medical History Migraine Medical History no medical history Home Medications Suboxone 2 mg-0.5 mg Sl Film 6 mg PO DAILY 11/19/15 [History Last Taken Unknown] clindamycin HCl 300 mg capsule (Cleocin HCl) 300 mg PO Q6H #28 caps 09/27/22 [Rx Last Taken Unknown] Allergy/AdvReac Type Severity Reaction Status Date / Time amoxicillin trihydrate Allergy Unknown Verified 09/27/22 16:30 [From Augmentin] erythromycin base Allergy Unknown Verified 09/27/22 16:30 [Erythromycin Base] morphine Allergy Unknown Verified 09/27/22 16:30 Penicillins Allergy Unknown Verified 09/27/22 16:30 potassium clavulanate Allergy Unknown Verified 09/27/22 16:30 [From Augmentin] Surgical History H/O tubal ligation Hx of cholecystectomy Hx of tonsillectomy Social History Smoking Status: Current every day smoker tobacco type: cigarettes ROS ROS ED ROS Narrative Constitutional: No fever, no chills. HEENT: No sore throat. No neck pain. No loss of vision. No rhinorrhea. Right TMJ and right lower jaw pain. Cardiovascular: No chest pain. No palpitations. No pedal edema. Respiratory: No cough, no shortness of breath. Abdominal: No abdominal pain. No nausea. No vomiting. Genitourinary: No dysuria. No hematuria. Musculoskeletal: No myalgias. No arthralgias. Neurologic: No headaches. No dizziness. No lightheadedness. Skin: No rash. No change in color. Psychiatric: No depression. No anxiety. EXAM Physical Exam Narrative Exam Narrative: Afebrile. Vital signs noted. HEENT: Normocephalic. Atraumatic. PERRL, EOMI. Neck soft and supple. No point tenderness or step off. No drooling or trismus. Mild tenderness to right TMJ joint. No fluctuance or swelling. No fluctuant abscess on the inside of mouth. Cardiovascular: Regular rate and rhythm. No murmurs, rubs, or gallops appreciated. Respiratory: No tachypnea. Lungs clear to auscultation bilaterally. Gastrointestinal: Abdomen soft, nontender, with normoactive bowel sounds. No rebound or guarding. Neurological: Awake. Alert. Nonfocal, nonlateralizing. Skin: No rash. Normal color. No pallor. Musculoskeletal: No pedal edema. Full range of motion extremities. Const Vital Signs: 09/27/22 16:30 Temperature 96.6 F L Temperature Source Temporal Pulse Rate 80 Respiratory Rate 15 Blood Pressure 133/83 H Blood Pressure Mean 99 Pulse Ox 100 Oxygen Delivery Method Room Air MDM MDM MDM Narrative Medical decision making narrative: I do not feel that laboratory work or CT imaging is indicated as there is no airway compromise, and treatment is going to be the same with extension of her clindamycin. I will put her on 300 mg 4 times a day for the next week. She has allergies to amoxicillin, erythromycin, and penicillins so I feel that clindamycin would be a more appropriate choice given her multiple allergies. She will continue her Tylenol and ibuprofen and follow-up with her dentist on Thursday, 2 days from now. I do not feel opiate are indicated as she is in recovery. At this point in time, I do feel she can be discharged safely home with follow-up. Return instructions to the emergency department were reviewed Discharge Plan Triage Chief Complaint: Dental ED Provider: Reyes Shetty Dx/Rx/DC Orders Clinical Impression: Mandible pain, Tobacco use, Dry tooth socket, Temporomandibular joint (TMJ) pain Instructions: ED Pain, Acute, Uncertain Cause, ED Dry Socket Prescriptions: New clindamycin HCl [Cleocin HCl] 300 mg capsule 300 mg PO Q6H Qty: 28 0RF No Action Suboxone 2 mg-0.5 mg Sl Film 6 mg PO DAILY Primary Care Provider: Radu Bella Referrals: Radu Bella MD [Primary Care Provider] - Activity Restrictions/Additional Instructions: Call your dentist on Thursday to be seen as soon as possible/early next week. Disposition Disposition: Home, Self Care
[2022-09-27] MEDS: Clindamycin HCl 150 MG Capsule 300 MG PO (17:16)
== END 2022-09-27 17:17 | disposition home or self-care (01) ==
PROVIDERS: Emergency Provider Emergency Medicine; PCP Family Medicine; Visit Provider Emergency Medicine
DX: M27.3 Alveolitis of jaws (principal); M26.611 Adhesions and ankylosis of right temporomandibular joint; F17.210 Nicotine dependence, cigarettes, uncomplicated
CPT/HCPCS: 99282

== ENCOUNTER 2024-12-08 15:25 | Emergency (ER) | payer BC, SELFPAY ==
[2024-12-08 15:26] VITALS: BP 159/83; PULSE 88; RESP 22; TEMP 36.1; O2SAT 98; BMI 34.0
--- NOTE | 2024-12-08 15:50 | EX.ED.DYSGE1 ---
HPI History of Present Illness Chief Complaint: Flank Pain Detail of Chief Complaint: Acute right flank pain radiating to groin Informant: patient Onset/Context/Timing Onset: Today (Onset 0500) Context: Sudden Onset Timing: Continuous and Waxes and wanes Quality: Pain Location: Right flank radiating to groin Current Severity: Moderate Maximum Severity: Severe Worsened by: Nothing Relieved by: Nothing Associated Symptoms Associated Symptoms: Nausea Narrative Narrative: Patient is a 39-year-old woman who has history of opiate abuse and polysubstance abuse who inform me that she does not want morphine. She has taken 800 mg of ibuprofen with no improvement. She does have a history of renal calculus. She states at 0500 she had abrupt onset of flank pain. The pain has been continuous with some waxing and waning its intensity. Does radiate down into the right groin area. She does endorse urgency. She denies hematuria or dysuria. She denies fever, chills night sweats. She denies cardiac or respiratory symptoms. She denies vaginal symptoms. She is status postcholecystectomy. Her appendix and uterus are still in place. Prior similar symptoms: Yes (Prior kidney stone) Recent Illness/Hospitalization: No PFSH PFS Medical History Migraine Home Medications ?Medication ?Instructions ?Recorded ?Last Taken ?Type Suboxone 2 mg-0.5 mg Sl Film 6 mg PO DAILY 11/19/15 Unknown History clindamycin HCl 300 mg capsule 300 mg PO Q6H #28 caps 09/27/22 Unknown Rx (Cleocin HCl) ketorolac 10 mg tablet 10 mg PO Q6H PRN pain 5 days #20 12/08/24 Unknown Rx tabs sulfamethoxazole 800 1 tab PO BID #14 TABLETS 12/08/24 Unknown Rx mg-trimethoprim 160 mg tablet Allergy/AdvReac Type Severity Reaction Status Date / Time amoxicillin trihydrate (From Allergy Unknown Verified 12/08/24 15:26 Augmentin) erythromycin base Allergy Unknown Verified 12/08/24 15:26 (Erythromycin Base) morphine Allergy Unknown Verified 12/08/24 15:26 Penicillins Allergy Unknown Verified 12/08/24 15:26 potassium clavulanate (From Allergy Unknown Verified 12/08/24 15:26 Augmentin) Surgical History Hx of tonsillectomy Hx of cholecystectomy H/O tubal ligation Social History Smoking Status: Current every day smoker tobacco type: cigarettes ROS ROS ED Constitutional Constitutional ED: Denies chills, fever(s), subjective, sweats or weight loss Eyes Eyes: Denies blurry vision, change in vision or diplopia ENT ENT ED: Denies rhinorrhea or sore throat Cardiovascular Cardiovascular: Denies chest pain Respiratory/Chest Respiratory/Chest: Denies cough or dyspnea Gastrointestinal Gastrointestinal: Reports abdominal pain and nausea; Denies constipation, diarrhea, melena or vomiting Genitourinary Genitourinary ED: Reports other Details: Patient does endorse urgency. ; Denies dysuria, hematuria or urinary frequency Musculoskeletal Musculoskeletal: Reports other Details: Right flank pain Integumentary Denies rash Neurologic Neurologic: Denies weakness Endocrine Endocrinology: Denies cold intolerance or heat intolerance Hematologic/Lymphatic Hematologic/Lymphatic: Reports systems reviewed and no addt'l complaints, except as documented EXAM Physical Exam Const Vital Signs: 12/08/24 15:26 Temperature 97 F L Temperature Source Temporal Pulse Rate 88 Respiratory Rate 22 H Blood Pressure 159/83 H Blood Pressure Mean 108 Pulse Ox 98 Oxygen Delivery Method Room Air Positive well nourished and well developed Constitutional Narrative: Patient's blood pressure is elevated. She appears uncomfortable. She states she cannot find a position of comfort. General Appearance ED: well developed; Negative for pallor HEENT Reports dry mucous membranes Negative for trauma or tenderness Mouth ED: Yes dry mucous membranes Mouth: dry mucous membranes Eyes Negative for PERRL or EOMs intact bilaterally General Eye ED: Negative for pale conjunctiva or scleral icterus Neck no lymphadenopathy, supple and no JVD Resp normal respiratory effort and clear to auscultation bilaterally Cardio regular rate, regular rhythm, S1 normal heart sound, S2 normal heart sound and no murmurs GI normal to inspection, nondistended, normoactive bowel sounds, non-tender, non-distended and no masses; Negative for hepatosplenomegaly Back/Spine no CVA tenderness Extremity normal to inspection General Extremety ED: Negative for edema General Extremity: Negative for edema Neuro oriented x3 and CN's II-XII intact bilaterally Sensorium / Orientation: alert Psych mental status grossly normal Skin no rashes or lesions noted, no wounds and skin turgor normal General Skin Exam: Negative for jaundice or pallor MDM MDM MDM Narrative Medical decision making narrative: Differential diagnosis would include obstructing ureteral stone, obstructing renal stone, pain of unknown etiology, spontaneous retroperitoneal hemorrhage, atypical presentation for appendicitis and pyelonephritis. CT of the abdomen pelvis without contrast was obtained as well as appropriate blood work to assess renal function, white count differential and UA to evaluate for infection. Because of her prior history of polysubstance abuse and heroin abuse she was treated with IV Toradol. She also received Zofran for her nausea. Lab Data Attestation: I reviewed the patient's lab results. (Urinalysis is remarkable for protein, occult blood and leukoesterase and negative for nitrites. She has 50-100 RBCs 5-10 WBCs with 5-10 epithelial cells and 1+ bacteria. Will send culture and placed on Bactrim based on her allergies. She was referred to urology.) Labs: Laboratory Results - last 24 hr 12/08/24 17:00 Urine Color Yellow Urine Clarity Sl. Cloudy Urine pH 6.0 Ur Specific [place] 1.010 Urine Protein 30 H Urine Glucose (UA) Normal Urine Ketones Negative Urine Occult Blood 250 H Urine Nitrite Negative Urine Bilirubin Negative Urine Urobilinogen Normal Ur Leukocyte Esterase 25 H Urine RBC 50-100 SEEN Urine WBC 5-10 SEEN Ur Squamous Epith Cells 5-10 SEEN Ur Transition Epith Cell 0-5 SEEN Urine Bacteria 1+ Urine Mucus 0 SEEN Radiography Diagnostic Testing: Clinical Impression(s) from Imaging Studies Abdomen/Pelvis CT 12/08/24 16:07 IMPRESSION: 1. A 4 mm calculus is either within the medial most RIGHT UVJ, or within the dependent bladder lumen immediately abutting the RIGHT ureteral orifice. Mild asymmetric fullness of the RIGHT ureter and renal pelvis without erik hydronephrosis. Additional punctate nonobstructing intrarenal calculi bilaterally. 2. Suspect tubal ligation with displacement of the RIGHT adnexal tubal ligation clip into the LEFT pelvis. Correlate with surgical history. 3. Additional description as above. Reading Location: [id number] Treatment and Re-Evaluation :: Patient was informed of my interpretation. I will also inform her that the clip on the right fallopian tube has been displaced and we will need to see her [employer]EFITS CONSULTANT since she is at risk for . Patient was informed that she will need to use an additional form of control. She was referred to Dr. Ruggiero since the tubal ligation was performed by Dr. Farrell. Discharge Plan Triage Chief Complaint: Flank Pain ED Provider: Sung Redmond Dx/Rx/DC Orders Clinical Impression: Hydronephrosis with urinary obstruction due to ureteral calculus, Bilateral renal stones, Tobacco use, BMI 34.0-34.9,adult Instructions: ED Kidney Stone with Pain Prescriptions: New sulfamethoxazole-trimethoprim 800-160 mg tablet 1 tab PO BID Qty: 14 0RF ketorolac 10 mg tablet 10 mg PO Q6H PRN (Reason: pain) 5 Days Qty: 20 0RF No Action Suboxone 2 mg-0.5 mg Sl Film 6 mg PO DAILY clindamycin HCl [Cleocin HCl] 300 mg capsule 300 mg PO Q6H Qty: 28 0RF Primary Care Provider: Radu Bella Referrals: Moshe Hoover MD [Med Staff - Active Staff] - 5-7 Days Sury Rod DO [Med Staff - Active Staff] - 5-7 Days Radu Bella MD [Primary Care Provider] - Print Language: Ivorian Disposition Disposition: Home, Self Care
[2024-12-08] MEDS: Ketorolac 15 MG/ML Vial IV (15:58)
[2024-12-08] MEDS: Ondansetron 4 MG/2 ML Vial IV (15:58)
[2024-12-08] MEDS: 0.9% Normal Saline (1000mL) 1,000 ML 250 ML IV (15:58)
--- NOTE | 2024-12-08 16:07 | CT_ITS ---
CT/Abdomen/Pelvis without Cont IMPRESSION: 1. A 4 mm calculus is either within the medial most RIGHT UVJ, or within the de pendent bladder lumen immediately abutting the RIGHT ureteral orifice. Mild asymmetric fullness of the RIGHT ureter and renal pelvis without erik hydronephrosis. Additional punctate nonobstructing intrarenal calculi bilaterally. 2. Suspect tubal ligation with displacement of the RIGHT adnexal tubal ligation clip into the LEFT pelvis. Correlate with surgical history. 3. Additional description as above. Reading Location: [id number]
[2024-12-08 17:05] LABS: Mucous, Urine 0 SEEN /hpf (<or=2+)
[2024-12-08 17:09] LABS: Color, Urine Yellow (Yellow); Glucose, Dipstick Normal (Normal); Ketone-Dipstick Negative (Negative); Leukocyte Esterase-Dipstick 25 /ul (Negative); Nitrite-Dipstick Negative (Negative); Occult Blood-Urine 250 /ul (Negative); Protein-Dipstick 30 mg/dl (Negative); Urine Bilirubin Dipstick Negative (Negative); Urine Clarity Sl. Cloudy (Clear); Urine Urobilinogen Normal (Normal)
[2024-12-08 17:34] LABS: Squamous Epithelial Cells - UA 5-10 SEEN /hpf (5-10)
[2024-12-08 17:35] LABS: Bacteria 1+ /hpf (None Seen); Red Blood Cells-Urine 50-100 SEEN /hpf (0-5)
[2024-12-08 17:36] LABS: Transitional Epithelial - Ur 0-5 SEEN /hpf (0-5); White Blood Cells 5-10 SEEN /hpf (0-5)
[2024-12-08] MEDS: Smz/Tmp Ds Tablet 1 TABLET PO (18:29)
[2024-12-08 18:34] VITALS: BP 133/77; PULSE 79; RESP 18; TEMP 36.3; O2SAT 97
== END 2024-12-08 18:36 | disposition home or self-care (01) ==
PROVIDERS: Emergency Provider Emergency Medicine; PCP Family Medicine; Referring Provider Emergency Medicine; Visit Provider Emergency Medicine
DX: N13.2 Hydronephrosis with renal and ureteral calculous obstruction (principal); R10.9 Unspecified abdominal pain; Z90.49 Acquired absence of other specified parts of digestive tract; Z98.51 Tubal ligation status; F17.210 Nicotine dependence, cigarettes, uncomplicated
CPT/HCPCS: 74176; 81001; 87086; 87088; 96361; 96374; 96375; 99283; A4216; J2405